=== PATIENT | female | born 1985 ===

== ENCOUNTER 2017-02-11 10:14 | Emergency (ER) | payer MEDICAID ==
[2017-02-11 11:14] VITALS: BP 134/76; PULSE 96; RESP 20; TEMP 99; O2SAT 98
--- NOTE | 2017-02-11 12:13 | ED PDOC ---
HPI: Skin/Bite Injury Time Seen by Provider: 02/11/17 11:23 Chief Complaint (Nursing): Abnormal Skin Integrity History Per: Patient History/Exam Limitations: no limitations Onset/Duration Of Symptoms: Gradual (for months) Current Symptoms Are (Timing): Still Present Quality Of Symptoms: Itching Severity: Mild Additional History Per: Patient Additional Complaint(s): acc to pt she has been having rashes x months worse today. has lesions on wrist and hands, knees and ankle. Past Medical History Reviewed: Historical Data, Nursing Documentation, Vital Signs Vital Signs: Last Vital Signs Temp 99 F 02/11/17 11:11 Pulse 96 H 02/11/17 11:11 Resp 20 02/11/17 11:11 BP 134/76 02/11/17 11:11 Pulse Ox 98 02/11/17 11:11 - Medical History PMH: No Chronic Diseases - Family History Family History: States: Unknown Family Hx - Living Arrangements Living Arrangements: With Family - Social History Current smoker - smoking cessation education provided: No Drugs: Denies - Home Medications Home Medications: Ambulatory Orders Medication Instructions Recorded Methylprednisolone [Medrol Dose 4 mg PO DAILY #21 mg 02/11/17 Pack (21 tabs)] Permethrin 5% [Permethrin 5% Cream] 6 applic EXT ONCE #1 tube 02/11/17 - Allergies Allergies/Adverse Reactions: Allergies Allergy/AdvReac Type Severity Reaction Status Date / Time No Known Allergies Allergy Verified 02/11/17 11:32 Review of Systems ROS Statement: Except As Marked, All Systems Reviewed And Found Negative Constitutional: Negative for: Fever, Chills Cardiovascular: Negative for: Chest Pain, Palpitations Respiratory: Negative for: Cough, Shortness of Breath Gastrointestinal: Negative for: Nausea, Vomiting, Abdominal Pain Musculoskeletal: Negative for: Neck Pain Skin: Positive for: Rash Neurological: Negative for: Weakness, Numbness, Headache Physical Exam - Reviewed Nursing Documentation Reviewed: Yes Vital Signs Reviewed: Yes - Physical Exam Appears: Positive for: No Acute Distress, Uncomfortable Head Exam: Positive for: ATRAUMATIC, NORMAL INSPECTION, NORMOCEPHALIC Skin: Positive for: Rash Eye Exam: Positive for: Normal appearance, EOMI, PERRL ENT: Positive for: Pharynx Is (clear,mmm). Negative for: Nasal Congestion, Pharyngeal Erythema, Tonsillar Exudate, Tonsillar Swelling Neck: Positive for: Normal, Painless ROM, Supple. Negative for: Decreased ROM, Limited ROM, Trachea Midline Cardiovascular/Chest: Positive for: Regular Rate, Rhythm, Chest Non Tender. Negative for: Edema, Gallop, Murmur, Bradycardia, Tachycardia Respiratory: Positive for: Normal Breath Sounds. Negative for: Decreased Breath Sounds, Accessory Muscle Use, Crackles, Rales, Rhonchi, Stridor, Wheezing Pulses-Radial (L): 2+ Pulses-Radial (R): 2+ Gastrointestinal/Abdominal: Positive for: Normal Exam, Bowel Sounds, Soft. Negative for: Tenderness Back: Positive for: Normal Inspection. Negative for: L CVA Tenderness, R CVA Tenderness Extremity: Positive for: Normal ROM. Negative for: Tenderness, Pedal Edema, Calf Tenderness, Capillary Refill, Deformity, Swelling Neurologic/Psych: Positive for: Alert, transportation modeler II-XII, Oriented. Negative for: Motor/Sensory Deficits Comments: rash c/w scabies on bl wrists, ankle and back of knee. - ECG O2 Sat by Pulse Oximetry: 98 Disposition - Clinical Impression Clinical Impression: Scabies - Patient ED Disposition Is Patient to be Admitted: No Counseled Patient/Family Regarding: Studies Performed, Diagnosis, Need For Followup, Rx Given - Disposition Referrals: [facility] [Outside] (2 to 3 days) Disposition: Routine/Home Disposition Time: 11:10 Condition: GOOD Prescriptions: Methylprednisolone [Medrol Dose Pack (21 tabs)] 4 mg PO DAILY #21 mg Permethrin 5% [Permethrin 5% Cream] 6 applic EXT ONCE #1 tube Instructions: Scabies (ED) Forms: [facility] [employer] ([place])
== END 2017-02-11 12:33 | disposition home or self-care (01) ==
LOC: H.ER 10:14
DX: B86 Scabies (principal)